=== PATIENT | male | born 1940 | race Caucasian/White ===

== ENCOUNTER 2017-01-30 15:09 | Inpatient (IN) | payer MEDICARE, OTHER ==
[~2017-01-30] VITALS: Ht 172.7 cm; Wt 101.7 kg
[2017-01-30 15:09] VITALS: BP 152/74
[~2017-01-30 15:09] MED LIST: ATIVAN0.5 MG PO; Clopidogrel75 MG PO; KLOR-CON M2020 ME1 PO; LASIX40 MG PO; MAXZIDE 50 MG-71 TA1 PO; Meclizine25 MG PO; NORVASC2.5 MG PO; OMEPRAZOLE20 M2 PO; PRINIVIL20 M1 PO; ZOCOR40 MG PO; [UNRECOGNIZED DRUG - OTHER] PO
[2017-01-30 15:52] LABS: BASO % 0.4 % (0.0-1.0); EOS # 0.1 10*3/uL (0.0-0.4); EOS % 1.3 % (1.0-4.0); HEMATOCRIT 46.3 % (42.0-52.0); HEMOGLOBIN 15.1 g/dl (14.0-18.0); LYMPH % 9.7 % (27.0-41.0); MEAN CELL VOLUME 89.2 fl (80.0-94.0); MEAN CORPUSCULAR HGB 29.1 pg (27.0-31.0); MEAN CORPUSCULAR HGB CONC 32.6 g/dl (33.0-37.0); MEAN PLATELET VOLUME 12.7 fl (9.6-12.3); MONO # 0.5 10*3/uL (0.1-1.0); MONO % 4.9 % (3.0-9.0); NEUT # 8.8 10*3/uL (2.3-7.9); NEUT % 83.3 % (47.0-73.0); PLATELET COUNT AUTOMATED 203 10*3/uL (130-400); RED BLOOD COUNT 5.19 10*6/uL (4.50-5.90); RED CELL DISTRI WIDTH 13.9 % (0-14.5); WHITE BLOOD COUNT 10.5 10*3/uL (4.8-10.8)
[2017-01-30 16:05] LABS: ACT PARTIAL THROMBO TIME 20.9 SECONDS (20.8-31.5)
--- NOTE | 2017-01-30 16:10 | NUR ---
PT TO CT SCAN AT THIS TIME.--JOSE GAUTAM RN
[2017-01-30 16:11] LABS: ALKALINE PHOSPHATASE 99 U/L (45-117); BUN 16 mg/dl (7-24); CHLORIDE 101 mmol/L (98-107); CREATININE 0.93 mg/dL (0.70-1.30); LIPASE 100 U/L (73-393); MAGNESIUM 1.8 mg/dL (1.5-2.1); POTASSIUM 4.2 mmol/L (3.5-5.1); SGOT/AST 20 IU/L (3-35); SGPT/ALT 23 U/L (12-78); SODIUM 138 mmol/L (136-145); TOTAL PROTEIN 7.4 gm/dL (6.4-8.2); TROPONIN I 0.036 ng/ml (<0.045)
[2017-01-30 16:54] LABS: BILIRUBIN NEGATIVE (NEGATIVE); BLOOD 1+ (NEGATIVE); CLARITY SL CLOUDY (CLEAR); COLOR YELLOW (YELLOW); GLUCOSE 3+ (NEGATIVE); KETONE 3+ (NEGATIVE); LEUKO ESTERASE TRACE (NEGATIVE); NITRITE NEGATIVE (NEGATIVE); PH 5.5 (5.0-9.0); UROBILINOGEN 0.2 E.U./dl (0.2-1.0)
[2017-01-30 17:05] LABS: BACTERIA 1+
[2017-01-30 17:07] LABS: WBC 21-30 wbc/hpf (0-5)
--- NOTE | 2017-01-30 17:22 | NUR ---
PT RESTING QUIETLY.HE IS GOING TO BE ADMITTED.---JOSE GAUTAM RN
[2017-01-30 18:04] VITALS: BP 157/63
--- NOTE | 2017-01-30 18:14 | NUR ---
A 76, admitted to , under the services of REBECA Mehta DO with a diagnosis of UTI,CELLULITIS F R LOWER EXTREMITY,DIZZINESS. Chief complaint is FALL. Patient arrived via bed from ER. Monitor applied. Initial assessment completed. Vital signs taken and recorded. REBECA MEHTA DO notified of admission to the unit. Orders received. See assessment for past medical history, medications and allergies. Patient and/or family oriented to unit. [facility] visitation policy reviewed. Clothing/patient valuable form completed. TERRI BAUTISTA
--- NOTE | 2017-01-30 18:20 | NUR ---
A 76, admitted to , under the services of REBECA Mehta DO with a diagnosis of FALLING, UTI. Chief complaint is 2 FALLS YESTERDAY, . Patient arrived via stretcher from ER. Monitor applied. Initial assessment completed. Vital signs taken and recorded. REBECA MEHTA DO notified of admission to the unit. Orders received. See assessment for past medical history, medications and allergies. Patient and/or family oriented to unit. [facility] visitation policy reviewed. Clothing/patient valuable form completed. SIN JOHN
[2017-01-30 18:25] VITALS: BP 169/67
[2017-01-30] MEDS ORDERED: DITROPAN XL15 M1 PO (18:36)
[2017-01-30] MEDS ORDERED: REQUIP0.25 M1 PO (18:36)
[2017-01-30] MEDS ORDERED: LANTUS SOL100 UNIT/1 SQ (18:37)
[2017-01-30] MEDS ORDERED: HUMALOG100 UNIT/1 SQ (18:37)
[2017-01-30] MEDS ORDERED: HUMALOG100 UNIT/2 SQ (18:40)
--- NOTE | 2017-01-30 18:44 | NUR ---
MED REC UPDATED BY CALLING [facility]
[2017-01-30 20:00] VITALS: BP 167/65
--- NOTE | 2017-01-30 22:43 | NUR ---
24 HR chart check completed.
[2017-01-31] VITALS: BP 160/60
[2017-01-31 06:05] LABS: BASO # 0.1 10*3/uL (0.0-0.1); BASO % 0.5 % (0.0-1.0); EOS # 0.2 10*3/uL (0.0-0.4); EOS % 2.2 % (1.0-4.0); HEMATOCRIT 42.6 % (42.0-52.0); HEMOGLOBIN 13.9 g/dl (14.0-18.0); LYMPH # 1.6 10*3/uL (1.3-4.4); LYMPH % 16.2 % (27.0-41.0); MEAN CELL VOLUME 88.6 fl (80.0-94.0); MEAN CORPUSCULAR HGB 28.9 pg (27.0-31.0); MEAN CORPUSCULAR HGB CONC 32.6 g/dl (33.0-37.0); MONO # 0.7 10*3/uL (0.1-1.0); MONO % 7.3 % (3.0-9.0); NEUT # 7.5 10*3/uL (2.3-7.9); NEUT % 73.4 % (47.0-73.0); PLATELET COUNT AUTOMATED 194 10*3/uL (130-400); RED BLOOD COUNT 4.81 10*6/uL (4.50-5.90); WHITE BLOOD COUNT 10.1 10*3/uL (4.8-10.8)
[2017-01-31 06:30] LABS: ALBUMIN 2.7 gm/dl (3.1-4.5); BUN 14 mg/dl (7-24); CHLORIDE 103 mmol/L (98-107); MAGNESIUM 1.7 mg/dL (1.5-2.1); POTASSIUM 3.7 mmol/L (3.5-5.1); SODIUM 138 mmol/L (136-145)
[2017-01-31 06:38] LABS: ALKALINE PHOSPHATASE 78 U/L (45-117); CHOLESTEROL 194 mg/dL (<200); CREATININE 0.81 mg/dL (0.70-1.30); FREE T4 1.22 ng/dl (0.76-1.46); HDL CHOLESTEROL 40 mg/dl (40-60); LDL CHOLESTEROL 122 mg/dL (9-159); PHOSPHOROUS 3.2 mg/dL (2.5-4.9); SGOT/AST 15 IU/L (3-35); SGPT/ALT 20 U/L (12-78); TOTAL PROTEIN 6.4 gm/dL (6.4-8.2); TRIGLYCERIDES 161 mg/dl (<150); VLDL CHOLESTEROL 32 mg/dL (6-40)
[2017-01-31 07:02] LABS: VITAMIN D, 25-HYDROXY 21.5 ng/mL (30-100)
[2017-01-31 08:00] VITALS: BP 139/58
--- NOTE | 2017-01-31 08:00 | NUR ---
SHIFT ASSESSMENT COMPLETE. PATIENT VOICES NO COMPLAINTS AT THIS TIME. BED IS IN LOW POSITION. CALL LIGHT WITHIN REACH.
--- NOTE | 2017-01-31 08:30 | NUR ---
Stenotype Machine Operator in to talk to patient. Patient states lives at HOME with HIS DAUGHTER. There are 0 steps in the home. Physician: DR LAWSON Pharmacy: [facility] health services: NONE Patient's level of ADLs: MODERATE ASSIST Patient has working utilities: YES DME: [facility] Follow-up physician's appointment after d/c: WILL BE MADE PRIOR TO DC Does patient want to access PORTAL?: Discharge plan . JASMINE MCLEAN PT AGREES TO SNF STAY. GIVEN CHOICES, HE REQUESTS [facility] OR [facility]. DC MANAGER QUALITY IMPROVEMENT WILL MAKE REFERRAL.
--- NOTE | 2017-01-31 08:39 | NUR ---
NORCO 5/325 GIVEN FOR RIGHT SIDED RIB PAIN RATING A 5/10 ON PAINSCALE.
--- NOTE | 2017-01-31 11:03 | NUR ---
PHYSICAL THERAPY PAtient evaluated on 4, full evaluation to follow. Continue with PT as per plan of care with fall, mod to max (A) x 2, right chronic hemiparesis and bed alarm precautions. Will require SNF for impaired mobility. PAtient is high complexity via chart review, tests and evaluation: 50939. Thank you for this referral. Shila redman,PT
--- NOTE | 2017-01-31 11:29 | NUR ---
Occupational Therapy evaluation completed this date on 4 with full eval to follow. PRecautions include glasgow, high complexity level, dysarthria,left facial droop, fall risk, +2 xfer assist. Recommend OT per POC and inpatient rehab v.s SNF to enable safe return home at [facility]. Thank you for this referral. Zonia Hoyos OTR/l
--- NOTE | 2017-01-31 11:37 | NUR ---
Patient requested referrals be made to [facility]hab [facility] or [facility]. Rehab suites is full; referral faxed to [facility], if patient is accepted will require a 3 nights stay.
[2017-01-31 12:00] VITALS: BP 120/67
--- NOTE | 2017-01-31 12:05 | NUR ---
DR RUIZ NOTIFIED OF CONSULT. STATES THAT HE WILL SEE HIM THIS EVENING OR TOMORROW MORNING.
--- NOTE | 2017-01-31 12:36 | NUR ---
Patient now requests referral to [facility] since rehab suites is full. Contacted brittnee and put a hold on that referral. Contacted [facility] and faxed referral. Waiting on acceptance, will require 3 night stay if accepted. PASSRR completed online in [employer] system
--- NOTE | 2017-01-31 14:10 | NUR ---
PHYSICAL THERAPY Patient was sitting in bedside chair. patient cannot communicate how he feels. Patient began to do ther ex in seated position but ,then he decided to stop and this ENERGY CONSERVATION DIRECTOR could not get him to do anything else. Lan Gutierrez PTA
[2017-01-31 16:00] VITALS: BP 103/75
--- NOTE | 2017-01-31 16:05 | NUR ---
JUSTICE NOLASCO [id number] Please refer to the physician's history and physical for past medical history, comorbid conditions, and allergies. Diagnosis: UTI,CELLULITIS RT LOWER EXTREMITY,DIZZY,FREQUENT F Arnel Score: 17,AT RISK WOUND DESCRIPTIONS: Location of the wound: Left elbow Type of wound: skin tear Thickness: Partial Size: 0.7 cm x 0.5 cm x <0.1 cm Tunneling: none Undermining: none Sinus Tract: none Amount: None Color: Whitt Odor: None Periwound Skin Appearance: Normal Wound edges: attached Pain (associated with wound): patient denies pain at time of assessment How does patient state this happened? patient unsure how this happened. Surface the patient is resting on: Isoflex SKIN PREVENTION RECOMMENDATION: 1. Pressure redistribution support surface as appropriate 2. Elevate heels 3. Remove boots/TEDS every shift and reapply 4. Head of bed 30 degrees as tolerated 5. Assess nutrition and hydration 6. Manage moisture 7. Avoid the use of containment devices while in bed 8. Use absorptive products on surfaces limit layers of linens on bed 9. Turn and reposition every 1-2 hours in bed and every 1 hour in chair as tolerated 10. Weight shifts every 15 minutes while up in chair 11. Offloading with pillows or device to keep heels elevated off bed 12. Monitor skin at least every shift 13. Inspect under medical devices twice a day WOUND TREATMENT RECOMMENDATIONS: Spoke with Dr. Maldonado with recommendations. Apply hydrogel, versatel, and cover with optifoam gentle.
--- NOTE | 2017-01-31 17:01 | NUR ---
PATIENT UNABLE TO RESPOND TO QUESTIONS ASKED. FAMILY STATES THAT PATIENTS EYES WERE ROLLING BACK IN HER HEAD. DR WANG NOTIFIED. CAME TO INSPECT PATIENT. NEW ORDERS RECEIVED.
[2017-01-31 17:39] LABS: BASO % 0.3 % (0.0-1.0); EOS # 0.2 10*3/uL (0.0-0.4); EOS % 1.4 % (1.0-4.0); HEMATOCRIT 43.4 % (42.0-52.0); HEMOGLOBIN 14.3 g/dl (14.0-18.0); LYMPH # 1.4 10*3/uL (1.3-4.4); LYMPH % 12.8 % (27.0-41.0); MEAN CELL VOLUME 88.2 fl (80.0-94.0); MEAN CORPUSCULAR HGB 29.1 pg (27.0-31.0); MEAN CORPUSCULAR HGB CONC 32.9 g/dl (33.0-37.0); MEAN PLATELET VOLUME 12.1 fl (9.6-12.3); MONO # 0.6 10*3/uL (0.1-1.0); MONO % 5.6 % (3.0-9.0); NEUT # 8.5 10*3/uL (2.3-7.9); NEUT % 79.4 % (47.0-73.0); PLATELET COUNT AUTOMATED 195 10*3/uL (130-400); RED BLOOD COUNT 4.92 10*6/uL (4.50-5.90); RED CELL DISTRI WIDTH 14.2 % (0-14.5); WHITE BLOOD COUNT 10.7 10*3/uL (4.8-10.8)
--- NOTE | 2017-01-31 17:45 | NUR ---
Arterial blood gases drawn from left radial after 1 attempt. The procedure was explained to the patient. The Bib's test was performed with satisfactory results. The artery was palpated. [id number]-[id number]-tibhzyg prep to site. The specimen was obtained and sent to the lab on ice. Digital pressure applied x 5 minutes. Pressure dressing applied. No bleeding or hematoma. Pulses equal bilaterally. SIN JOHN
[2017-01-31 17:52] LABS: ABG BASE EXCESS 2.7 mmol/L (-2.0-2.0); ABG HCO3 27.5 mmol/l (22-26); ABG O2 SATURATION 95.2 % (95-97); ARTERIAL BLOOD GAS PH 7.41 (7.35-7.45)
[2017-01-31 17:57] LABS: ALBUMIN 2.8 gm/dl (3.1-4.5); ALKALINE PHOSPHATASE 82 U/L (45-117); BUN 20 mg/dl (7-24); CHLORIDE 105 mmol/L (98-107); CREATININE 0.95 mg/dL (0.70-1.30); POTASSIUM 3.7 mmol/L (3.5-5.1); SGOT/AST 11 IU/L (3-35); SGPT/ALT 20 U/L (12-78); SODIUM 140 mmol/L (136-145); TOTAL PROTEIN 6.6 gm/dL (6.4-8.2)
[2017-01-31 19:00] VITALS: BP 136/44
--- NOTE | 2017-01-31 21:22 | NUR ---
24 HR chart check completed.
--- NOTE | 2017-01-31 21:51 | NUR ---
DR. ARCHER HERE TO SEE PATIENT.
--- NOTE | 2017-01-31 22:37 | NUR ---
PATIENT SPEECH CONTINUES TO BE GARBLED. HE IS MORE ALERT [facility]. I ASKED HIM IF HE WANTED A FLU SHOT HE SAID "YES. I HAVE NOT HAD ONE YET." FLU VACCINE ORDERED PER POLICY.
--- NOTE | 2017-01-31 23:18 | NUR ---
I spoke to daughter Belkys Harper. The telephone number for Belkys has been updated. Dr. Miller tried to call the number that was listed for Belkys and it had been disconnected. Belkys states she is upset that she was not notified first and that her sister was. Neither daughter holds POA and both are his next of kin. Belkys states she is having her ip attorney come over and draw up POA papers tomorrow. I will notify registration of the correct number for Belkys Harper. Dr. Miller had previously spoke to Tawanna Zillah to get consent for transfer. The patient has given given consent to transfer and has signed transfer form. Patient is sitting up in bed watching football at this time. No signs of distress. Flu shot was given. Medications were given as ordered. Refer to MAR. Will continue to monitor patient. Awaiting bed for [facility].
[2017-02-01] VITALS: BP 121/52
[2017-02-01 04:00] VITALS: BP 158/60
--- NOTE | 2017-02-01 04:37 | NUR ---
PATIENT TRANSFERRED TO [facility] BY [facility]. GLASSES, CELL PHONE AND PLUGGER MAN WITH PATIENT. REPORT WAS CALLED TO MACY DILLARD AT [facility].
[2017-02-01 04:44] LABS: BASO % 0.4 % (0.0-1.0); EOS # 0.3 10*3/uL (0.0-0.4); EOS % 3.4 % (1.0-4.0); HEMATOCRIT 42.2 % (42.0-52.0); HEMOGLOBIN 13.5 g/dl (14.0-18.0); LYMPH # 1.9 10*3/uL (1.3-4.4); LYMPH % 19.7 % (27.0-41.0); MEAN CELL VOLUME 89.8 fl (80.0-94.0); MEAN CORPUSCULAR HGB 28.7 pg (27.0-31.0); MEAN PLATELET VOLUME 13.2 fl (9.6-12.3); MONO # 0.6 10*3/uL (0.1-1.0); MONO % 6.4 % (3.0-9.0); NEUT # 6.6 10*3/uL (2.3-7.9); NEUT % 69.8 % (47.0-73.0); PLATELET COUNT AUTOMATED 178 10*3/uL (130-400); RED CELL DISTRI WIDTH 14.2 % (0-14.5); WHITE BLOOD COUNT 9.5 10*3/uL (4.8-10.8)
[2017-02-01 05:16] LABS: ALBUMIN 2.7 gm/dl (3.1-4.5); BUN 16 mg/dl (7-24); CHLORIDE 107 mmol/L (98-107); CREATININE 0.77 mg/dL (0.70-1.30); POTASSIUM 3.7 mmol/L (3.5-5.1); SGOT/AST 15 IU/L (3-35); SGPT/ALT 18 U/L (12-78); SODIUM 142 mmol/L (136-145)
[2017-02-01 05:19] LABS: ALKALINE PHOSPHATASE 69 U/L (45-117); TOTAL PROTEIN 6.2 gm/dL (6.4-8.2)
--- NOTE | 2017-02-01 08:00 | NUR ---
PHYSICAL THERAPY CO-SIGN I approve of the Phyical Therapy notes written above. LILIA BRAVO PT
== END 2017-02-01 04:36 | disposition short-term general hospital (02) | DRG 299 ==
LOC: ED 15:09 → EDHOLD 17:32 → 4E 17:32 → ICCU 17:32 → 4E 17:56 → ICCU 01-31 19:01
PROVIDERS: Internal Medicine; Physician Assistant; ADMIT Internal Medicine
DX: I87.2 Venous insufficiency (chronic) (peripheral) (principal); E43 Unspecified severe protein-calorie malnutrition; I69.351 Hemiplegia and hemiparesis following cerebral infarction affecting right dominant side; E11.65 Type 2 diabetes mellitus with hyperglycemia; N30.01 Acute cystitis with hematuria; E66.01 Morbid (severe) obesity due to excess calories; W18.39XA Other fall on same level, initial encounter; I10 Essential (primary) hypertension; N32.81 Overactive bladder; G25.81 Restless legs syndrome; Z68.34 Body mass index [BMI] 34.0-34.9, adult; Y93.89 Activity, other specified; Y92.009 Unspecified place in unspecified non-institutional (private) residence as the place of occurrence of the external cause; Y99.8 Other external cause status; Z79.4 Long term (current) use of insulin; Z79.899 Other long term (current) drug therapy; Z82.3 Family history of stroke; Z82.49 Family history of ischemic heart disease and other diseases of the circulatory system; R07.81 Pleurodynia; R29.6 Repeated falls

== ENCOUNTER 2017-02-25 13:52 | Emergency (ER) | payer MEDICARE, OTHER ==
[~2017-02-25] VITALS: Ht 177.8 cm; Wt 113.4 kg
[~2017-02-25 13:52] MED LIST changes: +DITROPAN XL15 M1 PO; +HUMALOG100 UNIT/1 SQ; +HUMALOG100 UNIT/2 SQ; +LANTUS SOL100 UNIT/1 SQ; +REQUIP0.25 M1 PO
[2017-02-25 16:01] VITALS: BP 90/42
[2017-02-25 16:21] LABS: HEMATOCRIT 32.5 % (42.0-52.0); HEMOGLOBIN 10.5 g/dl (14.0-18.0); MEAN CELL VOLUME 92.6 fl (80.0-94.0); MEAN CORPUSCULAR HGB 29.9 pg (27.0-31.0); MEAN CORPUSCULAR HGB CONC 32.3 g/dl (33.0-37.0); MEAN PLATELET VOLUME 13.9 fl (9.6-12.3); PLATELET COUNT AUTOMATED 191 10*3/uL (130-400); RED BLOOD COUNT 3.51 10*6/uL (4.50-5.90); RED CELL DISTRI WIDTH 15.6 % (0-14.5); WHITE BLOOD COUNT 33.1 10*3/uL (4.8-10.8)
[2017-02-25 16:25] LABS: BILIRUBIN NEGATIVE (NEGATIVE); BLOOD NEGATIVE (NEGATIVE); CLARITY CLOUDY (CLEAR); COLOR YELLOW (YELLOW); GLUCOSE NEGATIVE (NEGATIVE); KETONE NEGATIVE (NEGATIVE); LEUKO ESTERASE TRACE (NEGATIVE); NITRITE NEGATIVE (NEGATIVE); SPECIFIC GRAVITY <= 1.005 (1.005-1.030); UROBILINOGEN 0.2 E.U./dl (0.2-1.0)
[2017-02-25 16:30] LABS: ACT PARTIAL THROMBO TIME 23.1 SECONDS (20.8-31.5); INTERNATIONAL NORM RATIO 1.1 (2.0-3.5)
[2017-02-25 16:42] LABS: YEAST 2+
[2017-02-25 16:43] LABS: BACTERIA TRACE
[2017-02-25 16:54] LABS: CREATININE 1.95 mg/dL (0.70-1.30); POTASSIUM 5.3 mmol/L (3.5-5.1); TOTAL PROTEIN 5.6 gm/dL (6.4-8.2)
[2017-02-25 17:00] LABS: PLATELET SUFFICIENCY NORMAL (NORMAL); TOTAL CELLS COUNTED 100 #CELLS
[2017-02-25 17:02] LABS: TROPONIN I 0.208 ng/ml (<0.045)
== END 2017-02-25 17:00 | disposition short-term general hospital (02) ==
LOC: ED 13:52
PROVIDERS: Emergency Medicine
DX: J96.90 Respiratory failure, unspecified, unspecified whether with hypoxia or hypercapnia (principal); I46.9 Cardiac arrest, cause unspecified; R41.82 Altered mental status, unspecified; I49.01 Ventricular fibrillation; E11.9 Type 2 diabetes mellitus without complications; Z79.899 Other long term (current) drug therapy; Z79.4 Long term (current) use of insulin; Z86.73 Personal history of transient ischemic attack (TIA), and cerebral infarction without residual deficits